=== PATIENT | female | born 1975 | race African-American/Black ===

== ENCOUNTER 2016-09-07 06:34 | Observation (INO) ==
[2016-09-07] MEDS ORDERED: ONDANSETRON 4 MG/2 ML VIAL IV STA (07:32)
[2016-09-07] MEDS ORDERED: SODIUM CHLORIDE 0.9% 1,000 ML IV STA (07:32)
--- NOTE | 2016-09-07 07:58 | Emergency Department Note ---
Pako Willett Mantricia, am scribing for, and in the presence of, Shakir Squires MD 07:39. Tavia Willett James D, MD, personally performed the services described in this documentation, ascribed by Fabian Min in my presence, and it is both accurate and complete 757 . Arrival - Arrival Chief Complaint: Abdominal / Flank Pain Stated Complaint: abd,chest and back pain ED Nursing Triage Note: Patient ambulatory to triage c/o ABD pain that has been going on for "some months". patient states that it hurts all across her ABD and into her back. Last BM was the morning. Patient came in this morning because she did not get any sleep last night. Mode of Arrival: Ambulatory Limitations: No Limitations Source: Patient, Significant other, RN Notes Reviewed Time Seen by Provider: 09/07/16 07:14 - History of Present Illness HPI Narrative: Pt is a 40 y/o black female arriving to ED with c/o abdominal pain that onset months ago. She states that she is always hungry but the pain worsens after she eats. Pt reports that the pain keeps her up all night and is along her right side and radiates to the middle of her stomach and down her back. Pt confirms N/ V but denies dysuria, coughing, and consuming any alcohol. Pt states that she has taken OTC medications and has had no relief. Onset (ago): month(s) Allergies/Adverse Reactions: Allergies Allergy/AdvReac Type Severity Reaction Status Date / Time meperidine [From Demerol] Allergy Seizure Verified 09/07/16 06:41 Home Medications: Home Medications Medication Instructions Recorded Confirmed Type SUMAtriptan succinate [Sumatriptan 100 mg PO DAILY PRN MDD 200MG/24H 01/18/15 History Succinate] Topiramate [Topamax] 200 mg PO BID 01/18/15 09/07/16 History Review of System - Review of System 12 point system: reviewed and no additional remarkable complaints except as stated - Review of System Constitutional: Absent: chills, diaphoresis, fever Eyes: Absent: discharge, pain Head/Ears/Nose/Throat: Absent: earache, epistaxis Respiratory: Absent: cough, respiratory distress, wheezing Cardiovascular: Absent: chest pain, palpitations Gastrointestinal: Present: abdominal pain (right sided), nausea, vomiting. Absent: diarrhea Genitourinary female: Absent: abnormal menses, dysuria Musculoskeletal: Present: back pain. Absent: arm pain, leg pain, neck pain Skin: Absent: rash, lesions Neurological: Absent: headache, weakness Medical,Surgical,& Family Hx - Medical History Neurology: History of: Migraine, Seizures Musculoskeletal: History of: Musculoskeletal Problems (Left knee surg.) - Surgical History Reproductive Surgeries: Surgical HX of;: Hysterectomy - Social History Smoking Status: Never smoker Frequency of Alcohol Use: None Type of Drug Use: None Exam Vital Signs: Vital Signs Temperature 97.3 F L 09/07/16 07:24 Pulse Rate 73 09/07/16 11:15 Respiratory Rate 18 09/07/16 11:15 Blood Pressure 123/69 09/07/16 11:15 O2 Sat by Pulse Oximetry 99 09/07/16 11:15 - General General appearance: alert, in no apparent distress - Head Head exam: Present: atraumatic, normocephalic, normal inspection - Eye Eye exam: Present: normal appearance, PERRL, EOMI - ENT ENT exam: Present: normal exam, normal oropharynx, mucous membranes moist, TM's normal bilaterally, normal external ear exam - Neck Neck exam: Present: normal inspection, full ROM, trachea midline. Absent: tenderness - Chest Chest inspection: Present: normal inspection, symmetric chest wall rise. Absent : tenderness - Respiratory Respiratory exam: Present: normal lung sounds bilaterally - Cardiovascular Cardiovascular exam: Present: regular rate, normal rhythm, normal heart sounds - Abdominal Exam Abdominal exam: Present: soft, tenderness (TTP RUQ), normal bowel sounds. Absent: distention, guarding, rebound - Extremities Exam Extremities exam: Present: normal inspection, full ROM, normal capillary refill. Absent: tenderness, pedal edema - Back Exam Back exam: Present: normal inspection, full ROM. Absent: tenderness - Neurological Exam Neurological exam: Present: alert, oriented X3, CN II-XII intact, normal gait, reflexes normal - Psychiatric Psychiatric exam: Present: normal affect, normal mood - Skin Skin exam: Present: warm, dry, intact, normal color Course - Consultations Consultation #1: Discussed with Dr. Greenfield. He will see the patient in the emergency department. Time: 12:03 Results - Labs CBC & BMP: 09/07/16 08:07 09/07/16 08:07 Lab Results: I have reviewed the patients labs Labs: Hepatobiliary scan: Gallbladder ejection fraction is 27% with moderate depression of gallbladder function. - Diagnostic Findings Procedure: Abdominal x-ray: image reviewed by me (Nonspecific gas pattern, no free air, gas in the rectum.), Chest x-ray: image reviewed by me (No infiltrates , no pleural effusions, no cardiomegaly), Ultrasound: report reviewed by me ( Gallbladder ultrasound: No evidence of cholelithiasis or cholecystitis.) Disposition Clinical Impression: Right upper quadrant abdominal pain, Dysfunctional gallbladder Case discussed with: patient, patient's family Condition: Stable
--- NOTE | 2016-09-07 08:15 | XRay Report ---
XR abdomen 2V Indication: Abdominal pain. Comparison: None. Technique: Flat and erect images of the abdomen were performed. Findings: Lung bases are clear. No organomegaly suggested. The bowel gas pattern demonstrates no significant abnormality. Bony structures as well as soft tissues demonstrate no evidence of significant pathology. Bilateral lucency within the mid abdomen distends the oblique musculature and density suggests fat. No free intraperitoneal air or discrete evidence of ascites is demonstrated. Density within the left pelvis measuring up to 20 mm could reflect intrapelvic calcification, possibly ovarian or uterine fibroid. High density food material is not entirely excluded. Impression: 1. No specific process is suggested within the abdomen or pelvis. 09/07/2016 8:07 AM PROCEDURE INTERPRETED AT [facility] DEPARTMENT OF RADIOLOGY Final Report Signed by: Dr. Fredy Vanegas
--- NOTE | 2016-09-07 08:16 | XRay Report ---
XR chest 1V portable Indication: Abdominal pain. Comparison: None. Technique: Portable AP chest was performed. Findings: The heart size appears within normal limits. Pulmonary vasculature demonstrates no specific abnormality. Hilar structures demonstrate fairly symmetric appearance. The lungs appear clear. Bones and soft tissues demonstrate no evidence of acute pathology. Impression: 1. No evidence of acute pathology. 09/07/2016 8:13 AM PROCEDURE INTERPRETED AT [facility] DEPARTMENT OF RADIOLOGY Final Report Signed by: Dr. Fredy Vanegas
[2016-09-07 08:25] LABS: Basophils # 0.1 10*3/uL (0.0-0.2); Basophils % 0.6 % (0.0-0.8); Eosinophils # 0.6 10*3/uL (0.0-0.87); Eosinophils % 4.2 % (0.00-10.9); Hematocrit 41.6 VOL% (35.7-47.0); Hemoglobin 13.4 GM/DL (12.0-16.0); Immature Granulocytes % 0.7 %; Lymphocytes # 3.9 10*3/uL (1.4-4.0); Mean Corpuscular HGB Conc 32.2 GM/DL (32-36); Mean Corpuscular Hemoglobin 28 PG (27-34); Mean Corpuscular Volume 85.2 FL (87-102); Mean Platelet Volume 11.7 FL (9.6-12.0); Monocytes # 0.8 10*3/uL (0.11-0.8); Monocytes % 5.4 % (1.7-12.7); Neutrophils # 8.9 10*3/uL (1.4-7.4); Neutrophils % 62.1 % (38.7-73.9); Platelet Count 378 T/CUMM (130-400); Red Blood Count 4.88 MC/CUMM (3.8-5.5); Red Cell Distribution Width 14.7 % (9.3-17.3); White Blood Count 14.3 T/CUMM (4-12)
[2016-09-07 08:30] LABS: Apearance,Urine CLEAR (Clear); Bacteria,Urine Occasional /HPF (Few); Bilirubin,Urine Negative (Negative); Blood, Urine Negative (Negative); Glucose,Urine (UA) Negative (Negative); Ketones,Urine Negative (Negative); Nitrite,Urine Negative (Negative); Protein,Urine Negative; RBC,Urine 1 /HPF (0-4); Squamous Epithelial Cell,Urine Occasional /HPF (0-10); Urine Color Straw (Yellow); Urine Specific Gravity 1.011 (1.001-1.035); Urine Urobilinogen < 2.0 EU/DL (0.2-1.0); WBC,Urine 1 /HPF (0-6)
--- NOTE | 2016-09-07 08:33 | Ultrasound Report ---
US gallbladder Indication: Right upper quadrant abdominal pain Comparison: None. Technique: Using transcutaneous probe, ultrasound imaging of the right upper quadrant was performed. Ultrasound images were captured and stored. Imaged structures include the liver, gallbladder, pancreas, right kidney, aorta, and inferior vena cava. Findings: Pancreas demonstrates no significant abnormality. Images submitted of the liver demonstrate no evidence of focal hepatic mass. Color flow is present within the interrogated portal and hepatic venous segments. Liver is grossly normal in size. Gallbladder demonstrates no significant abnormality. Common bile duct measures 4.5 mm, within normal limits. The right kidney measures 10.4 cm in craniocaudal dimension. Aorta and inferior vena cava not included on this study secondary to bowel gas. Impression: 1. No findings are present to suggest etiology of right upper quadrant abdominal pain. 09/07/2016 8:29 AM PROCEDURE INTERPRETED AT [facility] DEPARTMENT OF RADIOLOGY Final Report Signed by: Dr. Fredy Vanegas
[2016-09-07] MEDS ORDERED: ONDANSETRON 4 MG/2 ML VIAL ONE ×2 (08:53→13:30)
[2016-09-07 08:57] LABS: Alanine Aminotransferase 28 U/L (13-56); Albumin 3.7 G/DL (3.4-5.0); Alkaline Phosphatase 84 U/L (45-117); Aspartate Amino Transferase 18 U/L (0-37); Bilirubin,Total < 0.39 MG/DL (0.2-1.0); Blood Urea Nitrogen 22 MG/DL (7-18); Calcium 9.4 MG/DL (8.5-10.1); Glucose 88 MG/DL (74-106); Osmolality,Calculated 274.8 MOS/KG (273-304); Potassium 4.6 MMOL/L (3.5-5.1); Sodium 137 MMOL/L (136-145); Total Protein 8.2 G/DL (6.4-8.3)
--- NOTE | 2016-09-07 11:40 | Nuclear Medicine Report ---
NM hepatobiliary Indication: Right upper quadrant abdominal pain. Comparison: None. Technique: Following intravenous administration of 5 millicuries of technetium 99m labeled Choletec, planar imaging in anterior projection was performed at regular intervals through 60 minutes. Following this, A total of 8 ounces of Ensure were administered orally and time activity curve was plotted during gallbladder emptying. Findings: Normal distribution of Choletec is demonstrated within the liver parenchyma. Homogeneous activity is present. Concentration and excretion of Choletec via the biliary system into the small bowel appears within normal limits. The gallbladder is noted to fill by 15 minutes postinjection The gallbladder ejection fraction was calculated to be 27%. Impression: 1. No evidence of cystic or extrahepatic biliary ductal obstruction. Mild to moderate depression of gallbladder ejection fraction is demonstrated. 09/07/2016 11:36 AM PROCEDURE INTERPRETED AT [facility] DEPARTMENT OF RADIOLOGY Final Report Signed by: Dr. Fredy Vanegas
--- NOTE | 2016-09-07 12:47 | General Surg History&Physical ---
Assessment and Plan (1) Biliary dyskinesia Status: Acute Assessment and plan: It appears the patient has biliary dyskinesia on this this cannot conclusively be determined. The assessment of a presumptive diagnosis was reviewed with the patient and her at bedside. The option of proceeding with laparoscopic cholecystectomy or proceeding with further evaluation to rule out other potential GI pathologies was reviewed as well. The risks of laparoscopic cholecystectomy were reviewed specifically including but not limited to infection, bleeding, blood vessel injury, nerve injury, injury to adjacent organs, the need for additional procedures, reactions to medications, and unforeseeable pulmonary, cardiac and/or neurologic events including the rare event of . It was discussed that the procedure may provide partial or no relief of symptoms. The patient and her expressed understanding of the assessment, prognosis and risks. The patient wishes to proceed with surgery today. Current Visit: Yes History of Present Illness Chief complaint: Abd pain History of present illness: Ms. Ahuja is a 40 year old female presenting to the emergency department with complaints of 3 months of abdominal pain. She reports that she has had daily upper abdominal pain through the right upper and lower quadrants associated with nausea and intermittently associated vomiting which is worsened after eating and lasts for couple hours. She is noted as of late she has had worsening constipation symptoms. No fever, chills, riders, weight loss or anorexia. Home Medications Medication Instructions Recorded Confirmed Type SUMAtriptan succinate [Sumatriptan 100 mg PO DAILY PRN MDD 200MG/24H 01/18/15 History Succinate] Topiramate [Topamax] 200 mg PO BID 01/18/15 09/07/16 History Allergies Allergy/AdvReac Type Severity Reaction Status Date / Time meperidine [From Demerol] Allergy Seizure Verified 09/07/16 06:41 Medical,Surgical,& Family Hx - Medical History Neurology: History of: Migraine, Seizures (Patient reports remote history of seizures. No longer requires treatment. ) Musculoskeletal: History of: Musculoskeletal Problems (Left knee surg.) - Surgical History Reproductive Surgeries: Surgical HX of;: Hysterectomy - Social History Smoking Status: Never smoker Frequency of Alcohol Use: None Type of Drug Use: None Exam - Constitutional Vitals: Period Temp Pulse Resp BP Sys/Ag Pulse Ox Last 24 Hr 97.3 F-97.3 F 63-92 18-18 111-131/69-83 97-100 General appearance: no acute distress, morbidly obese - Head Head exam: Present: normal inspection, normocephalic - Eye Eye exam: Absent: conjunctival injection, scleral icterus - Neck Neck exam: Present: trachea midline - Respiratory Respiratory exam: Present: clear to auscultation bilaterally - Cardiovascular Cardiovascular exam: Present: RRR - GI/Abdominal GI/Abdominal exam: Present: normal bowel sounds, tenderness (Tenderness in the epigastric to right upper quadrant region), soft. Absent: distended, firm, guarding - Extremities Exam Extremities exam: Absent: calf tenderness, edema - Neurological Exam Neurological exam: Present: alert, oriented X3 Speech: Present: normal - Skin Skin exam: Present: normal color, warm - Constitutional Constitutional: Present: as per HPI - Cardiovascular Cardiovascular: Absent: chest pain at rest, dyspnea on exertion, orthopnea, palpitations - Respiratory Respiratory: Absent: cough, wheezing - Gastrointestinal Gastrointestinal: Present: as per HPI - Genitourinary Genitourinary: Absent: dysuria, flank pain Hematologic/Lymphatic: Absent: easy bleeding, easy bruising Quality Measures - VTE Contraindication to Pharmacological VTE Prophylaxis: High Risk of Bleeding Results - Labs CBC & BMP: 09/07/16 08:07 09/07/16 08:07 Labs: HIDA scan with EF 27% - Diagnostic Findings Procedure: Chest x-ray: image reviewed by me, report reviewed by me, Ultrasound : report reviewed by me (RUQ), X-ray: image reviewed by me, report reviewed by me (JANIS)
[2016-09-07] MEDS ORDERED: TISSUE ADHESIVE 1 EACH APPLICATOR TOP ONE (12:58)
[2016-09-07] MEDS ORDERED: BUPIVACAINE MPF 0.25% /EPI 30 ML VIAL ONE (12:58)
[2016-09-07] MEDS ORDERED: ceFAZolin 1,000 MG VIAL ONE (13:18)
[2016-09-07] MEDS ORDERED: SUCCINYLCHOLINE 200 MG/10 ML VIAL ONE (13:30)
[2016-09-07] MEDS ORDERED: GLYCOPYRROLATE 0.4 MG/2 ML VIAL ONE (13:30)
[2016-09-07] MEDS ORDERED: PROPOFOL 200 MG/20 ML VIAL IV ONE (13:30)
[2016-09-07] MEDS ORDERED: ROCURONIUM 100 MG/10 ML VIAL IV ONE (13:30)
[2016-09-07] MEDS ORDERED: NEOSTIGMINE 10 MG/10 ML VIAL ONE (13:30)
[2016-09-07] MEDS ORDERED: KETOROLAC 30 MG/1 ML VIAL ONE (13:30)
[2016-09-07] MEDS ORDERED: LIDOCAINE 2% 5 ML VIAL ONE (13:30)
[2016-09-07] MEDS ORDERED: HYDROmorphone 2 MG/1 ML VIAL ONE (14:32)
--- NOTE | 2016-09-07 14:37 | Operative Note ---
Date of procedure: 09/07/16 Pre-op diagnosis: Biliary dyskinesia, chronic cholecystitis Post-op diagnosis: same Procedure: Procedure performed: Laparoscopic cholecystectomy with intraoperative cholangiogram Procedure in detail: After informed consent was obtained, patient was taken operating suite placed upon the operating table. After general anesthesia was induced abdomen was prepped and draped in usual sterile fashion. After procedural pause local anesthetic infiltrated in skin and subcutaneous tissue above the umbilicus. Incision was made and dissection carried down through skin and soft tissue. Fascia identified and grasped with Cynthia's and elevated. Fascial incision was made. Abdominal cavity entered bluntly. Finger sweep revealed no adhesions. Plata trocar placed under visualization. Pneumoperitoneum achieved. The camera inserted bowel mesentery inspected and found to be free of any violation. Next patient was placed in reverse Trendelenburg position rotated to the left. 2 5 mm trochars were placed in the right upper quadrant and an 11 mm subxiphoid trocar was placed all under visualization. Gallbladder was identified. There were changes consistent with previous attacks. Gallbladder was grasped and retracted superiorly. Infundibulum of the gallbladder retracted toward the right hip. Dissection was carried out from lateral to medial approach and the triangle of Zeeshan. Cystic duct and cystic artery were identified and isolated. Using a critical view technique these are only 2 structures entering the gallbladder. Cystic artery was somewhat tortuous bowing in front of the cystic duct. It was triple clipped and transected. A clip was placed at the junction of the cystic duct neck of the gallbladder. Partial transection made on cystic duct and cholangiocatheter inserted and secured in place. Intraoperative glandular and performed. Cystic duct common bile duct intra-and extrahepatic ducts were all patent with no filling defects identified. Contrast seen easily entering small bowel. The cholangiocatheter was removed and 2 clips placed on the cystic duct just distal to the partial transection and the transection completed. The gallbladder was then removed from the gallbladder fossa using hook cautery and placed in Endo Catch sac. It was removed to the Plata trocar site. Pneumoperitoneum achieved. Right upper quadrant thoroughly irrigated and suctioned. There was excellent hemostasis. The clips inspected found to be intact no leakage of bilious or sanguinous fluid. All the irrigant was suctioned. The trochars were removed as the abdomen desufflated. Fascia at the Plata trocar site closed using 0 Vicryl [id number] interrupted suture. Wounds irrigated and suctioned. Deep dermal layer closed with 3-0 Vicryl. Incision closed with braxton. Sterile dressings applied. Patient was explained taken recovery room in stable condition. All lap and needle counts correct at the end of the case per Anesthesia: KELVINA Surgeon / Physician: Hany Greenfield Estimated blood loss: other (Less than 10 cc) Specimens: other (Gallbladder) Condition: stable Disposition: PACU Results - Labs CBC & BMP: 09/07/16 08:07 09/07/16 08:07 Discharge Plan - Discharge Medications No Action Topiramate [Topamax] 200 mg PO BID SUMAtriptan succinate [Sumatriptan Succinate] 100 mg PO DAILY PRN MDD 200MG/ 24H PRN Reason: Migraine Headache - Follow Up or Referral - Forms/Instructions
[2016-09-07] MEDS ORDERED: fentaNYL 100 MCG/2 ML VIAL ONE (14:38)
[2016-09-07] MEDS ORDERED: MIDAZOLAM 2 MG/2 ML VIAL ONE (14:38)
[2016-09-07] MEDS: HYDROmorphone 2 MG/1 ML VIAL IV PRN ×4 (14:40→14:55)
--- NOTE | 2016-09-07 15:06 | Anesthesia Post-Op ---
Anesthesia Post OP - Post Ansesthetic Evaluation Patient seen in post op: Yes Resp: within normal limits CV: within normal limits Mental: within normal limits Temp: within normal limits [id number]: within normal limits Nausea and Vomiting: within normal limits Pain: within normal limits
[2016-09-07] MEDS ORDERED: ACETAMINOPHEN 325 MG TABLET PO PRN (15:24)
[2016-09-07] MEDS ORDERED: MORPHINE 2 MG/1 ML SYRINGE IM PRN (17:13)
[2016-09-07] MEDS: MORPHINE 2 MG/1 ML SYRINGE IV PRN ×2 (17:26→21:53)
[2016-09-07] MEDS: DEXTROSE 5% NACL 0.45% 1,000 ML IV SCH (17:33)
--- NOTE | 2016-09-07 19:02 | Fluoroscopy Report ---
FL cholangiogram in surgery Indication: Pain Comparison: None Technique: 33 intraoperative fluoroscopic views of the biliary tree. Fluoroscopy time 10 seconds. Findings: Images submitted during intraoperative cholangiogram. There is normal flow of contrast through the common duct into the duodenum. Please see operative report for details. IMPRESSION: As above. PROCEDURE INTERPRETED AT [facility] DEPARTMENT OF RADIOLOGY Final Report Signed by: Dr Dany Dickey
[2016-09-08] MEDS: DEXTROSE 5% NACL 0.45% 1,000 ML IV SCH ×2 (00:19→17:10)
[2016-09-08] MEDS: ONDANSETRON 4 MG/2 ML VIAL IV PRN ×4 (02:05→21:30)
[2016-09-08] MEDS: MORPHINE 2 MG/1 ML SYRINGE IV PRN ×4 (03:04→21:27)
[2016-09-08 08:29] LABS: Basophils # 0.1 10*3/uL (0.0-0.2); Basophils % 0.4 % (0.0-0.8); Eosinophils # 0.6 10*3/uL (0.0-0.87); Eosinophils % 4.5 % (0.00-10.9); Hematocrit 40.3 VOL% (35.7-47.0); Hemoglobin 13.1 GM/DL (12.0-16.0); Immature Granulocytes % 0.5 %; Immature Granulocytes Absolute 0.06 #; Lymphocytes # 2.8 10*3/uL (1.4-4.0); Lymphocytes % 21.2 % (21.3-54.2); Mean Corpuscular HGB Conc 32.5 GM/DL (32-36); Mean Corpuscular Hemoglobin 28 PG (27-34); Mean Platelet Volume 11.8 FL (9.6-12.0); Monocytes # 0.7 10*3/uL (0.11-0.8); Monocytes % 5.6 % (1.7-12.7); Neutrophils # 8.8 10*3/uL (1.4-7.4); Neutrophils % 67.8 % (38.7-73.9); Platelet Count 363 T/CUMM (130-400); Red Blood Count 4.74 MC/CUMM (3.8-5.5); Red Cell Distribution Width 14.9 % (9.3-17.3)
[2016-09-08] MEDS: PANTOPRAZOLE 40 MG TABLET PO SCH (09:00)
[2016-09-08 09:04] LABS: Calcium 8.9 MG/DL (8.5-10.1); Osmolality,Calculated 277.5 MOS/KG (273-304); Potassium 4.6 MMOL/L (3.5-5.1)
[2016-09-08] MEDS ORDERED: SUMAtriptan 25 MG TABLET PO PRN (11:21)
--- NOTE | 2016-09-08 11:27 | Pathology Report from [facility] ---
[facility] ACCESSION # : [id number] PATIENT NAME : Eleazar Ahuja ORDERING DR : Hany Greenfield MD CLINICAL HX: Biliary dyskinesia POST-OP DX: Same SPECIMEN INFO: Gallbladder GROSS DESCRIPTION: Received fresh labeled with the patients name and consists of an intact gallbladder measuring 9.5 x 2.6 cm. The serosa is ostg-aujn-nas and fatty. The wall averages 0.2 cm in thickness. The mucosa is cedeno-pedroza. The lumen contains hyperemic viscous bile. No stones identified. Emergency Medicine Nurse Practitioner sections submitted in one cassette. DIAGNOSIS FOR ELEAZAR Baugh PAGE: GALLBLADDER, CHOLECYSTECTOMY: Mild chronic cholecystitis. COLLECTED DATE: 09/07/2016 [facility] REPORT DATE: 09/08/2016 ELECTRONICALLY SIGNED BY: John Mendieta M.D. 09/08/2016 - 10:15:48 MTDFelicita
--- NOTE | 2016-09-08 15:27 | Event Note ---
Patient is postop day #1 status post laparoscope cholecystectomy for biliary dyskinesia. She has struggled oral intake today associated with nausea and complaints of abdominal pain. Patient reports preoperative pain is resolved, but this pain is a gaseous in nature. She is mobilizing and voiding without difficulty. Vital signs stable HEENT head is atraumatic normocephalic Heart regular rhythm Lungs clear to auscultation bilaterally Abdomen soft, obese. Surgical dressings clean, dry and intact. Hypoactive bowel sounds. No guarding or rigidity. Extremities: Calves soft and nontender. No pedal edema Leukocytosis resolved; creatinine stable Assessment and plan. Patient is postop day #1 status post laparoscopic cholecystectomy for Wyman biliary dyskinesia. She is progressing slowly at this point. Encourage mobilization. We will continue with IV fluids and advance her diet as tolerated. Antiemetics and analgesics as warranted. Reassess diet tolerance the morning for hopeful discharge. It appears patient may have CKD to to 3 at baseline. Her creatinine is stable with no signs of volume depletion DVT prophylaxis: Continue SCDs and mobilization. Hold Lovenox as patient is postop day #1 GI Proflex PPI daily Disposition anticipation home tomorrow with improved tolerance of diet
[2016-09-09] MEDS: MORPHINE 2 MG/1 ML SYRINGE IV PRN (06:22)
[2016-09-09] MEDS: ONDANSETRON 4 MG/2 ML VIAL IV PRN (06:26)
[2016-09-09] MEDS: PANTOPRAZOLE 40 MG TABLET PO SCH (10:15)
[2016-09-09 11:36] VITALS: BP 116/76
--- NOTE | 2016-09-09 11:48 | Discharge Summary ---
Hospital Course - Hospital Course Hospital Course: Patient is a 32-year-old female who presented with biliary dyskinesia. She underwent laparoscopic cholecystectomy after which she had improvement in her presenting symptoms. She initially had difficulty with pain management and tolerance of oral intake. Ultimately she was tolerating physical activity, voiding, and tolerating oral intake with minimal associated nausea. She had no vomiting. She is passing flatus without abdominal distention. She was discharged home in good condition with appropriate analgesics and antiemetics. To be followed with Dr. Greenfield. Diagnosis - Discharge Diagnosis (1) Biliary dyskinesia Status: Acute Specialty Discharge - Follow Up or Referrals Follow up with: Hany Greenfield MD [Physician] - 09/21/16 9:15 am Discharge Plan - Discharge Data Disposition: Disch To Home/Self Care Condition at Discharge: Stable Discharge Diet: advance to your usual diet (Frequent, small meals. ) Activity: no lifting (> 10 lb ) Hygiene: may shower (Do not soak or submerge surgical incisions. Pat dry. ) Driving: other (No driving while taking narcotics) Contact your physician if you experience:: fever over 101, Difficulty voiding, Redness or swelling, Nausea/Vomiting, Shortness of breath, Bleeding, pain uncontrolled by pain medications Wound / Dressing Care Instructions: Keep incisions clean, dry and covered. - Discharge Medications New Ondansetron Tab [Zofran Tab] 4 mg PO Q4H PRN #30 tablet PRN Reason: Nausea/Vomiting HYDROcodone/ACETAMIN 7.5-325 [Canadensis 7.5-325] 1 tablet PO Q4H PRN #30 tablet PRN Reason: Pain Moderate To Severe (4-10) Promethazine Tab [Phenergan Tab] 12.5 mg PO Q4H PRN #20 tablet PRN Reason: Nausea - Follow Up or Referral Follow Up: Hany Greenfield MD [Physician] - 09/21/16 9:15 am - Forms/Instructions Instructions: Laparoscopic Cholecystectomy (DC) Exam - Constitutional Vitals: Period Temp Pulse Resp BP Sys/Ga Pulse Ox Last 24 Hr 96.9 F-98.4 F 58-74 18-20 99-128/55-76 96-100 General appearance: no acute distress, morbidly obese - Head Head exam: Present: normal inspection, normocephalic - Eye Eye exam: Absent: conjunctival injection, scleral icterus - Respiratory Respiratory exam: Present: clear to auscultation bilaterally - Cardiovascular Cardiovascular exam: Present: regular rate and rhythm - GI/Abdominal GI/Abdominal exam: Present: normal bowel sounds, tenderness (Appropriate p/o tenderness), soft, other (obese). Absent: distended, firm, guarding (SUrgical dressings c/d/i) - Extremities Exam Extremities exam: Absent: calf tenderness, edema - Neurological Exam Neurological exam: Present: alert, oriented X3 - Psychiatric Psychiatric exam: Present: normal affect, normal mood - Skin Skin exam: Present: normal color, warm Discharge Results - Impressions HIDA with low GB EF 27% - Imaging and Cardiology Procedure: Ultrasound: image reviewed by me, report reviewed by me (gallbladder) DS: Provider Date of admission: 09/07/16 12:44 Primary care physician: . No PCP Attending physician on admission: Hany Greenfield MD Consults: None Discharging clinician: Elaine Mirza PA-C
== END 2016-09-09 12:15 | disposition home or self-care (01) ==
LOC: N.ED 06:34 → N.EDINP 06:34 → N.3E 15:51
PROVIDERS: ADMIT Surgery; ATTEND Surgery
PROC: LAPCHOL (2016-09-07 13:30)

== ENCOUNTER 2021-04-23 14:20 | Inpatient (IN) ==
[2021-04-23 18:20] LABS: Bilirubin,Urine Negative (Negative); Blood, Urine Negative (Negative); Glucose,Urine (UA) Negative (Negative); Ketones,Urine Negative (Negative); Mucus,Urine Occasional /LPF (Occasional); Nitrite,Urine Negative (Negative); Protein,Urine Negative; RBC,Urine 2 /HPF (0-4); Squamous Epithelial Cell,Urine Few /HPF (0-10); Urine Appearance Slightly Hazy (Clear); Urine Color Yellow (Yellow); Urine Specific Gravity 1.024 (1.001-1.035); Urine Urobilinogen < 2.0 EU/DL (<2.0)
[2021-04-23 19:32] LABS: Basophils # 0.1 10*3/uL (0.0-0.2); Basophils % 0.3 % (0.0-0.8); Eosinophils # 0.3 10*3/uL (0.0-0.87); Eosinophils % 1.7 % (0.00-10.9); Hematocrit 39.7 VOL% (35.7-47.0); Hemoglobin 12.5 GM/DL (12.0-16.0); Immature Granulocytes % 0.5 %; Immature Granulocytes Absolute 0.08 #; Lymphocytes # 3.7 10*3/uL (1.4-4.0); Lymphocytes % 23.5 % (21.3-54.2); Mean Corpuscular HGB Conc 31.5 GM/DL (32-36); Mean Corpuscular Volume 84.5 FL (87-102); Monocytes % 5.3 % (1.7-12.7); Neutrophils % 68.7 % (38.7-73.9); Platelet Count 299 T/CUMM (130-400); Red Cell Distribution Width 14.8 % (9.3-17.3); White Blood Count 15.8 T/CUMM (4-12)
[2021-04-23 19:58] LABS: Alanine Aminotransferase 20 U/L (13-56); Albumin 3.3 G/DL (3.4-5.0); Alkaline Phosphatase 78 U/L (45-117); Aspartate Amino Transferase 14 U/L (0-37); Bilirubin,Total < 0.39 MG/DL (0.20-1.00); Blood Urea Nitrogen 16 MG/DL (7-18); Calcium 9.4 MG/DL (8.5-10.1); Carbon Dioxide 27 MMOL/L (21-32); Estimated Glom Filtration Rate 75 ML/MIN; Glucose 81 MG/DL (74-106); Osmolality,Calculated 274.7 MOS/KG (273-304); Potassium 3.8 MMOL/L (3.5-5.1); Sodium 138 MMOL/L (136-145); Total Protein 7.8 G/DL (6.4-8.2)
[2021-04-23] MEDS ORDERED: SODIUM CHLORIDE 0.9% 1,000 ML IV STA (20:49)
[2021-04-23] MEDS ORDERED: ACETAMINOPHEN 500 MG TABLET PO STA (23:16)
[2021-04-23] MEDS ORDERED: ONDANSETRON 4 MG/2 ML VIAL IV PRN (23:34)
[2021-04-23] MEDS ORDERED: hydrALAZINE 20 MG/1 ML VIAL IV PRN (23:34)
[2021-04-23] MEDS ORDERED: SIMETHICONE CHEW 125 MG TABLET PO PRN (23:34)
[2021-04-23] MEDS ORDERED: GLUCAGON 1 MG VIAL IM PRN (23:34)
[2021-04-23] MEDS ORDERED: DEXTROSE 50% 25 GM/50 ML SYRINGE IV PRN (23:40)
[2021-04-24 00:11] LABS: Hematocrit 38.6 VOL% (35.7-47.0); Hemoglobin 12.1 GM/DL (12.0-16.0)
[2021-04-24] MEDS: PANTOPRAZOLE 40 MG VIAL IV SCH ×3 (00:19→20:27)
[2021-04-24 00:23] LABS: PT Patient Result 10.9 SECS (10.5-12.0); Partial Thromboplastin Time 31.2 SECS (23.8-32.1)
[2021-04-24] MEDS: SODIUM CHLORIDE 0.9% 1,000 ML IV SCH ×2 (02:50→19:15)
[2021-04-24 04:38] LABS: Alanine Aminotransferase 25 U/L (13-56); Albumin 2.7 G/DL (3.4-5.0); Alkaline Phosphatase 65 U/L (45-117); Aspartate Amino Transferase 17 U/L (0-37); Bilirubin,Total < 0.39 MG/DL (0.20-1.00); Blood Urea Nitrogen 15 MG/DL (7-18); Calcium 8.4 MG/DL (8.5-10.1); Carbon Dioxide 22 MMOL/L (21-32); Estimated Glom Filtration Rate 134 ML/MIN; Glucose 97 MG/DL (74-106); HDL Cholesterol 26 MG/DL (40-60); Osmolality,Calculated 273.8 MOS/KG (273-304); Potassium 3.9 MMOL/L (3.5-5.1); Risk Ratio 4.42; Sodium 137 MMOL/L (136-145); Total Protein 6.8 G/DL (6.4-8.2); Triglycerides 105 MG/DL (2-150)
[2021-04-24 06:36] LABS: Hematocrit 36.4 VOL% (35.7-47.0); Hemoglobin 11.3 GM/DL (12.0-16.0)
[2021-04-24 06:37] LABS: Basophils # 0.1 10*3/uL (0.0-0.2); Basophils % 0.4 % (0.0-0.8); Eosinophils # 0.4 10*3/uL (0.0-0.87); Eosinophils % 2.8 % (0.00-10.9); Hematocrit 36.4 VOL% (35.7-47.0); Hemoglobin 11.3 GM/DL (12.0-16.0); Immature Granulocytes % 0.6 %; Immature Granulocytes Absolute 0.08 #; Lymphocytes # 3.8 10*3/uL (1.4-4.0); Lymphocytes % 29.4 % (21.3-54.2); Mean Corpuscular Volume 84.3 FL (87-102); Mean Platelet Volume 12.6 FL (9.6-12.0); Monocytes % 5.3 % (1.7-12.7); Neutrophils % 61.5 % (38.7-73.9); Platelet Count 276 T/CUMM (130-400); Red Blood Count 4.32 MC/CUMM (3.8-5.5); Red Cell Distribution Width 14.8 % (9.3-17.3); White Blood Count 12.9 T/CUMM (4-12)
[2021-04-24] MEDS: ACETAMINOPHEN 325 MG TABLET PO PRN ×3 (08:33→20:27)
[2021-04-24 12:59] LABS: Hematocrit 38.2 VOL% (35.7-47.0)
[2021-04-24 17:22] LABS: Hematocrit 39.4 VOL% (35.7-47.0); Hemoglobin 12.4 GM/DL (12.0-16.0)
[2021-04-25] MEDS: ACETAMINOPHEN 325 MG TABLET PO PRN (03:20)
[2021-04-25] MEDS: SODIUM CHLORIDE 0.9% 1,000 ML IV SCH ×3 (03:21→15:50)
[2021-04-25] MEDS: BISACODYL 5 MG TABLET PO SCH ×3 (06:44→23:15)
[2021-04-25 07:17] LABS: Basophils # 0.1 10*3/uL (0.0-0.2); Basophils % 0.4 % (0.0-0.8); Eosinophils # 0.3 10*3/uL (0.0-0.87); Eosinophils % 2.8 % (0.00-10.9); Hematocrit 37.3 VOL% (35.7-47.0); Hemoglobin 11.8 GM/DL (12.0-16.0); Immature Granulocytes % 0.4 %; Immature Granulocytes Absolute 0.04 #; Lymphocytes # 3.1 10*3/uL (1.4-4.0); Lymphocytes % 26.7 % (21.3-54.2); Mean Corpuscular HGB Conc 31.6 GM/DL (32-36); Mean Corpuscular Volume 85.4 FL (87-102); Mean Platelet Volume 12.7 FL (9.6-12.0); Monocytes % 6.1 % (1.7-12.7); Neutrophils % 63.6 % (38.7-73.9); Platelet Count 276 T/CUMM (130-400); Red Blood Count 4.37 MC/CUMM (3.8-5.5); Red Cell Distribution Width 14.8 % (9.3-17.3); White Blood Count 11.4 T/CUMM (4-12)
[2021-04-25 07:41] LABS: Calcium 8.2 MG/DL (8.5-10.1); Osmolality,Calculated 284.1 MOS/KG (273-304)
[2021-04-25] MEDS: PANTOPRAZOLE 40 MG VIAL IV SCH ×2 (09:40→21:18)
[2021-04-25] MEDS ORDERED: POLYETHYLENE GLYCOL POWDER 255 GM BOTTLE PO ONE (18:00)
[2021-04-25] MEDS ORDERED: MAGNESIUM CITRATE 300 ML BOTTLE PO ONE (21:00)
[2021-04-26] MEDS ORDERED: DEXTROSE 10% 250 ML BAG IV PRN (01:09)
[2021-04-26] MEDS: SODIUM CHLORIDE 0.9% 1,000 ML IV SCH ×2 (02:00→11:58)
[2021-04-26 06:37] LABS: Basophils # 0.1 10*3/uL (0.0-0.2); Basophils % 0.3 % (0.0-0.8); Eosinophils # 0.3 10*3/uL (0.0-0.87); Eosinophils % 2.1 % (0.00-10.9); Hematocrit 41.8 VOL% (35.7-47.0); Hemoglobin 13.1 GM/DL (12.0-16.0); Immature Granulocytes % 0.5 %; Immature Granulocytes Absolute 0.08 #; Lymphocytes # 4.3 10*3/uL (1.4-4.0); Lymphocytes % 28.1 % (21.3-54.2); Mean Corpuscular HGB Conc 31.3 GM/DL (32-36); Mean Corpuscular Volume 85.3 FL (87-102); Mean Platelet Volume 11.9 FL (9.6-12.0); Platelet Count 354 T/CUMM (130-400); Red Cell Distribution Width 15.2 % (9.3-17.3); White Blood Count 15.4 T/CUMM (4-12)
[2021-04-26] MEDS ORDERED: LACTATED RINGERS 1,000 ML IV SCH (07:00)
[2021-04-26 07:04] LABS: Calcium 8.9 MG/DL (8.5-10.1); Potassium 3.9 MMOL/L (3.5-5.1)
[2021-04-26] MEDS ORDERED: CIPROFLOXACIN 500 MG TABLET PO SCH (09:30)
[2021-04-26 11:40] VITALS: BP 136/90
[2021-04-26] MEDS: PANTOPRAZOLE 40 MG VIAL IV SCH (11:50)
== END 2021-04-26 13:07 | disposition home or self-care (01) | DRG 392 ==
LOC: N.EDINP 14:20 → N.ED 14:20 → N.3E 04-24 03:48 → SUATTDRO 04-24 13:40
PROVIDERS: ADMIT Hospitalist; ATTEND Internal Medicine
PROC: COLONBX (2021-04-26 11:35)

== ENCOUNTER 2021-07-12 08:11 | Observation (INO) ==
[2021-07-12] MEDS ORDERED: diphenhydrAMINE 50 MG/1 ML VIAL IV STA (09:02)
[2021-07-12] MEDS ORDERED: PROMETHAZINE 25 MG/1 ML VIAL IM STA (09:02)
[2021-07-12 11:01] LABS: Basophils # 0.1 10*3/uL (0.0-0.2); Basophils % 0.4 % (0.0-0.8); Eosinophils # 0.3 10*3/uL (0.0-0.87); Eosinophils % 2.7 % (0.00-10.9); Hematocrit 43.4 VOL% (35.7-47.0); Hemoglobin 13.7 GM/DL (12.0-16.0); Immature Granulocytes % 0.4 %; Immature Granulocytes Absolute 0.05 #; Lymphocytes # 3.5 10*3/uL (1.4-4.0); Lymphocytes % 27.4 % (21.3-54.2); Mean Corpuscular HGB Conc 31.6 GM/DL (32-36); Mean Corpuscular Volume 85.1 FL (87-102); Mean Platelet Volume 12.3 FL (9.6-12.0); Monocytes % 4.5 % (1.7-12.7); Neutrophils % 64.6 % (38.7-73.9); Platelet Count 308 T/CUMM (130-400); Red Cell Distribution Width 14.5 % (9.3-17.3); White Blood Count 12.8 T/CUMM (4-12)
[2021-07-12 11:17] LABS: INR 0.9; PT Patient Result 10.1 SECS (10.5-12.0); Partial Thromboplastin Time 25.7 SECS (23.8-32.1)
[2021-07-12 11:20] LABS: Osmolality,Calculated 272.8 MOS/KG (273-304); Potassium 4.4 MMOL/L (3.5-5.1)
[2021-07-12 12:13] LABS: Sedimentation Rate-Westergren 33 MM/HR (0-20)
[2021-07-12 12:29] LABS: Barbiturates Screen,Urine Negative (Negative); Benzodiazepines Screen,Urine Negative (Negative); Cannabinoid Screen,Urine Negative (Negative); Opiate Screen,Urine Negative (Negative); Phencyclidine Screen,Urine Negative (Negative)
[2021-07-12] MEDS ORDERED: ACETAMINOPHEN 325 MG TABLET PO PRN (14:04)
[2021-07-12] MEDS ORDERED: hydrALAZINE 20 MG/1 ML VIAL IV PRN (14:04)
[2021-07-12] MEDS ORDERED: GLUCAGON 1 MG VIAL IM PRN (14:04)
[2021-07-12] MEDS ORDERED: ONDANSETRON 4 MG/2 ML VIAL IV PRN (14:04)
[2021-07-12] MEDS ORDERED: DEXTROSE 10% 250 ML BAG IV PRN (14:10)
[2021-07-12] MEDS ORDERED: ENOXAPARIN 40 MG/0.4 ML SYRINGE SUBCUT SCH (15:00)
[2021-07-12] MEDS: amLODIPine 5 MG TABLET PO SCH (17:51)
[2021-07-12] MEDS: SODIUM CHLORIDE 0.9% 1,000 ML IV SCH (17:52)
[2021-07-13] MEDS: SODIUM CHLORIDE 0.9% 1,000 ML IV SCH (01:36)
[2021-07-13 06:53] LABS: Basophils % 0.3 % (0.0-0.8); Eosinophils # 0.3 10*3/uL (0.0-0.87); Eosinophils % 2.4 % (0.00-10.9); Hematocrit 41.3 VOL% (35.7-47.0); Hemoglobin 12.8 GM/DL (12.0-16.0); Immature Granulocytes % 0.5 %; Immature Granulocytes Absolute 0.06 #; Lymphocytes # 3.8 10*3/uL (1.4-4.0); Lymphocytes % 31.2 % (21.3-54.2); Mean Corpuscular Volume 84.8 FL (87-102); Mean Platelet Volume 12.2 FL (9.6-12.0); Monocytes % 5.5 % (1.7-12.7); Neutrophils % 60.1 % (38.7-73.9); Platelet Count 291 T/CUMM (130-400); Red Blood Count 4.87 MC/CUMM (3.8-5.5); Red Cell Distribution Width 14.6 % (9.3-17.3); White Blood Count 12.3 T/CUMM (4-12)
[2021-07-13 07:24] LABS: Calcium 8.6 MG/DL (8.5-10.1); Free T4 (Free Thyroxine) 0.81 NG/DL (0.76-1.46); Osmolality,Calculated 280.3 MOS/KG (273-304); Risk Ratio 4.78; Thyroid Stimulating Hormone 2.08 uIU/ml (0.358-3.74); VLDL Cholesterol 24.6 MG/DL
[2021-07-13 07:59] VITALS: BP 145/87
[2021-07-13] MEDS: amLODIPine 5 MG TABLET PO SCH (08:10)
[2021-07-13] MEDS ORDERED: FLUTICASONE 50 MCG NASAL SPRAY 16 GM BOTTLE BOTH NARES SCH (09:00)
[2021-07-13 17:15] LABS: Folate 8.24 NG/ML (5.38-24.0)
== END 2021-07-13 11:08 | disposition home or self-care (01) ==
LOC: N.ED 08:11 → N.EDINP 08:11 → N.5E 07-13 00:04
PROVIDERS: ADMIT Family Medicine; ATTEND Family Medicine